=== PATIENT | male | born 1955 | race Caucasian/White ===

== ENCOUNTER 2018-07-18 18:15 | Observation (INO) ==
[2018-07-18] MEDS ORDERED: ONDANSETRON 4 MG/2 ML VIAL IV STA (19:09)
[2018-07-18] MEDS ORDERED: MECLIZINE 25 MG TABLET PO STA (19:09)
[2018-07-18] MEDS ORDERED: SODIUM CHLORIDE 0.9% 500 ML IV STA (19:09)
[2018-07-18 19:17] LABS: Basophils # 0.1 10*3/uL (0.0-0.2); Eosinophils # 0.2 10*3/uL (0.0-0.87); Eosinophils % 2.1 % (0.00-10.9); Hematocrit 40.1 VOL% (42.0-52.0); Hemoglobin 13.7 GM/DL (14.0-18.0); Immature Granulocytes % 0.3 %; Immature Granulocytes Absolute 0.02 #; Lymphocytes # 1.6 10*3/uL (1.4-4.0); Lymphocytes % 21.1 % (21.2-54.2); Mean Corpuscular HGB Conc 34.2 GM/DL (32-36); Mean Corpuscular Hemoglobin 31 PG (27-34); Mean Corpuscular Volume 91.8 FL (87-102); Mean Platelet Volume 10.4 FL (9.6-12.0); Monocytes # 0.8 10*3/uL (0.11-0.8); Monocytes % 10.4 % (1.7-12.7); Neutrophils % 65.1 % (38.7-73.9); Platelet Count 213 T/CUMM (130-400); Red Blood Count 4.37 MC/CUMM (3.8-5.5); Red Cell Distribution Width 12.4 % (9.3-17.3); White Blood Count 7.7 T/CUMM (4-12)
[2018-07-18 19:39] LABS: Alanine Aminotransferase 33 U/L (16-61); Alkaline Phosphatase 83 U/L (45-117); Aspartate Amino Transferase 25 U/L (0-37); Blood Urea Nitrogen 22 MG/DL (7-18); Calcium 8.8 MG/DL (8.5-10.1); Glucose 87 MG/DL (74-106); Osmolality,Calculated 274.8 MOS/KG (273-304); Potassium 3.8 MMOL/L (3.5-5.1); Sodium 137 MMOL/L (136-145); Total Protein 7.5 G/DL (6.4-8.3); Troponin I < 0.015 NG/ML (0.00-0.045)
[2018-07-18 19:41] LABS: INR 0.9; PT Patient Result 9.7 SECS
[2018-07-18 20:19] LABS: Apearance,Urine CLEAR (Clear); Bilirubin,Urine Negative (Negative); Blood, Urine Negative (Negative); Glucose,Urine (UA) Negative (Negative); Ketones,Urine Negative (Negative); Nitrite,Urine Negative (Negative); Protein,Urine Negative; Urine Color Colorless (Yellow); Urine Specific Gravity 1.003 (1.001-1.035); Urine Urobilinogen < 2.0 EU/DL (0.2-1.0)
[2018-07-18 20:26] LABS: Sedimentation Rate-Westergren 28 MM/HR (0-20)
[2018-07-18] MEDS ORDERED: ATORVASTATIN 40 MG TABLET PO SCH (22:42)
[2018-07-18] MEDS ORDERED: NITROGLYCERIN SL 0.4 MG TABLET SL PRN (22:42)
[2018-07-18] MEDS ORDERED: POTASSIUM CHLORIDE 20 MEQ TABLET PO PRN (22:42)
[2018-07-18] MEDS ORDERED: MORPHINE 4 MG/1 ML VIAL IV PRN (22:42)
[2018-07-18] MEDS ORDERED: SODIUM CHLORIDE 0.9% 1,000 ML IV SCH (22:42)
[2018-07-18] MEDS ORDERED: MAGNESIUM SULF RIDER 4 GM in PREMIX 1 EACH IV PRN (22:42)
[2018-07-18] MEDS ORDERED: MAGNESIUM SULF RIDER 2 GM in PREMIX 1 EACH IV PRN (22:42)
[2018-07-18] MEDS ORDERED: ONDANSETRON 4 MG/2 ML VIAL IV PRN (22:42)
[2018-07-18] MEDS ORDERED: INFLUENZA VIRUS VACCINE 0.5 ML SYRINGE IM ONE (22:58)
[2018-07-18] MEDS ORDERED: ENOXAPARIN 100 MG/ML SYRINGE SUBCUT SCH (23:00)
[2018-07-18 23:30] LABS: Troponin I < 0.015 NG/ML (0.00-0.045)
[2018-07-19] MEDS: NITROGLYCERIN 2% OINT 1 INCH/GM PACK TOP SCH ×2 (01:11→06:52)
[2018-07-19 05:47] LABS: Basophils % 0.8 % (0.0-0.8); Eosinophils # 0.1 10*3/uL (0.0-0.87); Eosinophils % 2.4 % (0.00-10.9); Hematocrit 38.3 VOL% (42.0-52.0); Hemoglobin 12.8 GM/DL (14.0-18.0); Immature Granulocytes % 0.2 %; Immature Granulocytes Absolute 0.01 #; Lymphocytes # 1.5 10*3/uL (1.4-4.0); Lymphocytes % 27.3 % (21.2-54.2); Mean Corpuscular HGB Conc 33.4 GM/DL (32-36); Mean Corpuscular Hemoglobin 31 PG (27-34); Mean Corpuscular Volume 92.5 FL (87-102); Monocytes # 0.6 10*3/uL (0.11-0.8); Monocytes % 10.5 % (1.7-12.7); Neutrophils # 3.1 10*3/uL (1.4-7.4); Neutrophils % 58.8 % (38.7-73.9); Platelet Count 209 T/CUMM (130-400); Red Blood Count 4.14 MC/CUMM (3.8-5.5); Red Cell Distribution Width 12.4 % (9.3-17.3); White Blood Count 5.3 T/CUMM (4-12)
[2018-07-19 07:02] LABS: Troponin I < 0.015 NG/ML (0.00-0.045)
[2018-07-19 07:08] LABS: Calcium 8.5 MG/DL (8.5-10.1)
[2018-07-19 07:09] LABS: Albumin 3.6 G/DL (3.4-5.0); Bilirubin,Total 1.1 MG/DL (0.2-1.0); Osmolality,Calculated 281.4 MOS/KG (273-304); Potassium 3.9 MMOL/L (3.5-5.1); Total Protein 6.4 G/DL (6.4-8.3)
[2018-07-19 07:48] VITALS: BP 137/72
[2018-07-19 08:11] LABS: Risk Ratio 3.03; VLDL CHOLESTEROL 16.4 MG/DL
[2018-07-19] MEDS ORDERED: CLOPIDOGREL 75 MG TABLET PO SCH (09:00)
[2018-07-19] MEDS ORDERED: LISINOPRIL 5 MG TABLET PO SCH (09:00)
[2018-07-19] MEDS ORDERED: ASPIRIN EC 81 MG TABLET PO SCH (09:00)
[2018-07-19] MEDS ORDERED: PANTOPRAZOLE 40 MG TABLET PO SCH (09:00)
[2018-07-19] MEDS ORDERED: ASPIRIN EC 325 MG TABLET PO SCH (09:00)
== END 2018-07-19 11:12 | disposition home or self-care (01) ==
LOC: N.ED 18:15 → INTOOBSV 20:46 → N.EDINP 20:46 → N.TELEN 22:00
PROVIDERS: ADMIT Internal Medicine Cardiovascular Disease; ATTEND Internal Medicine Cardiovascular Disease